=== PATIENT | female | born 1955 | race Caucasian/White ===

== ENCOUNTER 2018-04-13 08:09 | Emergency (ER) | payer OTHER ==
[~2018-04-13] VITALS: Ht 167.6 cm; Wt 62.0 kg
[2018-04-13 08:13] VITALS: BP 110/71; PULSE 88; RESP 16; TEMP 98.6; O2SAT 96
--- NOTE | 2018-04-13 08:37 | PD ---
HPI Chief Complaint: Injury Time Seen by Provider: 08:30 Travel History International Travel<30 days: No Contact w/Intl Traveler<30days: No Traveled to known affect area: No History of Present Illness HPI This patient complains of injury to her right wrist. Last night she fell after actually stepping on her cat. She landed on her right wrist. Complains of pain and swelling. It is worse with movement. Duration 1 day. No alleviating factors. She has an orthopedist Dr. Quintana. [facility] Past Medical History Hx Anticoagulant Therapy: No Cancer: Yes (BREAST) Diabetes: No Tetanus Vaccination: > 5 Years Influenza Vaccination: Yes ?: Not LMP: 12 YEARS AGO Past Surgical History Other Surgery: Yes (LEFT LUMPECTOMY) Social History Alcohol Use: Yes (4-5 DAYS A WEEK) Tobacco Use: No Substance Use: No Allergies-Medications (Allergen,Severity, Reaction): Coded Allergies: No Known Allergies (Unverified , 04/13/18) Review of Systems General / Constitutional: No: Fever Eyes: No: Visual changes HENT: No: Headaches Cardiovascular: No: Chest Pain or Discomfort Respiratory: No: Shortness of Breath Gastrointestinal: No: Abdominal Pain Genitourinary: No: Dysuria Musculoskeletal: Positive: Arthralgias, Limited ROM, Pain Skin: No Rash Neurologic: No: Weakness Psychiatric: No: Depression Endocrine: No: Polydipsia Hematologic/Lymphatic: No: Easy Bruising Physical Exam Narrative GENERAL: Well-nourished, well-developed patient in no apparent distress. SKIN: Focused skin assessment reveals no rash and nodules. Skin is Warm and dry. HEAD: Atraumatic. Normocephalic. EYES: Pupils equal and round. No scleral icterus. No injection or drainage. ENT: No nasal bleeding or discharge. Mucous membranes pink and moist. NECK: Trachea midline. No JVD. CARDIOVASCULAR: Regular rate and rhythm. No murmur appreciated. RESPIRATORY: No accessory muscle use. Clear to auscultation. Breath sounds equal bilaterally. GASTROINTESTINAL: Abdomen soft, non-tender, nondistended. Hepatic and splenic margins not palpable. MUSCULOSKELETAL: Has some swelling and tenderness to the right wrist. No open wound or bruising. Right hand neurovascularly intact. No clubbing. No cyanosis. No edema. NEUROLOGICAL: Awake and alert. No obvious cranial nerve deficits. Motor grossly within normal limits. Normal speech. PSYCHIATRIC: Appropriate mood and affect; insight and judgment normal. Data Data Last Documented VS Vital Signs Date Time Temp Pulse Resp B/P (MAP) Pulse Ox O2 Delivery O2 Flow Rate FiO2 04/13/18 08:13 98.6 88 16 110/71 (84) 96 Orders Orders Wrist, Complete ([id number]) (04/13/18 ) Splint Or Brace Apply/Monitor (04/13/18 09:13) MDM Medical Decision Making Medical Screen Exam Complete: Yes Emergency Medical Condition: Yes Medical Record Reviewed: Yes Differential Diagnosis Fracture, contusion, dislocation Narrative Course I have reviewed the patient's electronic medical record. I reviewed her right wrist x-rays which revealed a distal radius fracture. She is neurologically intact. I applied a sugar tong splint I wrote her medication for pain She will ice and elevate and call her orthopedist for follow-up Diagnosis Primary Impression: Closed right radial fracture Qualified Codes: S52.354A - Nondisplaced comminuted fracture of shaft of radius, right arm, initial encounter for closed fracture Scripts Oxycodone-Acetaminophen (Percocet) 5-325 mg Tab 1 TAB PO Q6H Y for PAIN, #12 TAB 0 Refills Prov: Riley Laura MD 04/13/18 Riley Laura MD Apr 13, 2018 08:37
--- NOTE | 2018-04-13 09:01 | RADRPT ---
EXAM DATE: 04/13/2018 8:56 AM EDT AGE/SEX: 62 years / Female INDICATIONS: Right wrist pain post fall CLINICAL DATA: This is the patient's initial encounter. Patient reports that signs and symptoms have been present for 1 day and indicates a pain score of 8/10. MEDICAL/SURGICAL HISTORY: . . COMPARISON: No prior [facility] exams available for comparison. FINDINGS: 3 views of the right wrist reveal an acute impaction style fracture involving the distal radial metap hysis. This is comminuted with a portion of the fracture extending to the radiocarpal articular surfa ce. 15 degrees of angulation with apex towards the palmar surface. A nondisplaced ulnar styloid fract ure noted. The carpus is otherwise intact. Soft tissue swelling noted. CONCLUSION: Acute distal radial fracture as detailed above. Nondisplaced ulnar styloid fracture. Electronically signed by: Shantanu Fiore MD 04/13/2018 8:59 AM EDT
[2018-04-13] MEDS ORDERED: PERC5TAB12 PO (09:54)
== END 2018-04-13 10:11 | disposition home or self-care (01) ==
LOC: PHED 08:09
DX: S52.501A Unspecified fracture of the lower end of right radius, initial encounter for closed fracture (principal); W18.31XA Fall on same level due to stepping on an object, initial encounter; Z85.3 Personal history of malignant neoplasm of breast
CPT/HCPCS: 29125; 73110

== ENCOUNTER → 2018-04-16 | Outpatient (CLI) | payer OTHER ==
[~2018-04-16] MED LIST: PERC5TAB12 PO
[2018-04-16 11:37] LABS: AUTOMATED NEUTROPHIL # 3.3 TH/MM3 (1.8-7.7); BASOPHIL % 0.9 % (0.0-2.0); EOSINOPHIL # 0.4 TH/MM3 (0-0.4); EOSINOPHIL % 8.4 % (0.0-4.0); HEMATOCRIT 38.5 % (35.0-46.0); HEMOGLOBIN 12.7 GM/DL (11.6-15.3); LYMPH % 17.9 % (9.0-44.0); LYMPHOCYTE # 0.9 TH/MM3 (1.0-4.8); MEAN CELL VOLUME 80.9 FL (80.0-100.0); MEAN CORPUSCULAR HEMOGLOBIN 26.7 PG (27.0-34.0); MEAN PLATELET VOLUME 9.6 FL (7.0-11.0); MONO % 8.8 % (0.0-8.0); MONOCYTE # 0.4 TH/MM3 (0-0.9); PLATELET COUNT 237 TH/MM3 (150-450); RED BLOOD COUNT 4.77 MIL/MM3 (4.00-5.30); RED CELL DISTRIBUTION WIDTH 13.5 % (11.6-17.2); WHITE BLOOD COUNT 5.1 TH/MM3 (4.0-11.0)
[2018-04-16 12:01] LABS: BICARBONATE 26.4 MEQ/L (21.0-32.0); CALCIUM 9.1 MG/DL (8.5-10.1); CREATININE 0.78 MG/DL (0.50-1.00)
== END ==
LOC: CLAB 11:12
PROVIDERS: ATTEND Orthopaedic Surgery Orthopaedic Surgery of the Spine
DX: Z01.812 Encounter for preprocedural laboratory examination (principal); M25.50 Pain in unspecified joint; Z79.01 Long term (current) use of anticoagulants
CPT/HCPCS: 36415; 80048; 85025